=== PATIENT | female | born 1960 | race Caucasian/White ===

== ENCOUNTER 2022-04-10 18:54 | Emergency (ER) | payer OTHER ==
[~2022-04-10] VITALS: Ht 167.6 cm; Wt 48.1 kg
[2022-04-10 20:04] VITALS: BP_SYST 156
[2022-04-10] MEDS ORDERED: KETOROLAC TROMETHAMINE 30 MG VIAL IM ONE (20:15)
[2022-04-10] MEDS ORDERED: AUG875 PO (21:12)
[2022-04-10] MEDS ORDERED: IBUP-1971 PO (21:12)
[2022-04-10] MEDS ORDERED: FLUT16SP16 NS (21:12)
[2022-04-10 21:40] VITALS: BP_SYST 143
== END 2022-04-10 21:40 | disposition home or self-care (01) ==
LOC: SED 18:54
DX: J01.90 Acute sinusitis, unspecified (principal); R51.9 Headache, unspecified; R09.81 Nasal congestion; Z79.899 Other long term (current) drug therapy
CPT/HCPCS: 99283; 93005; 96372; J1885

== ENCOUNTER 2022-04-18 17:38 | Emergency (ER) | payer OTHER ==
[~2022-04-18] VITALS: Ht 167.6 cm; Wt 47.6 kg
[~2022-04-18 17:38] MED LIST: AUG875 PO; FLUT16SP16 NS; IBUP-1971 PO
[2022-04-18 17:44] VITALS: BP_SYST 136
--- NOTE | 2022-04-18 19:55 | NUR ---
ER at bedside examining patient.
[2022-04-18] MEDS ORDERED: KETOROLAC TROMETHAMINE 30 MG VIAL IM ONE (20:00)
[2022-04-18] MEDS ORDERED: LORazepam 1 MG TABLET PO ONE (20:00)
[2022-04-18] MEDS ORDERED: MAG HYDROX/AL HYDROX/SIMETH 30 ML, DICYCLOMINE HCL 20 MG, LIDOCAINE VISCOUS 2% 15ML (PO... PO ONE ×3 (20:00)
--- NOTE | 2022-04-18 20:30 | NUR ---
EKG performed at BS by RP. Physician given copy of EKG for review.
--- NOTE | 2022-04-18 21:00 | NUR ---
Patient is a 61-year-old female with history anxiety and mood disorder. Takes Prozac for 20 years. Patient states that she has been experiencing intermittent episodes of anxiety for the past 2 weeks in the setting of her parents passing away. Patient states that she felt her heart racing today which is consistent with her previous anxiety episodes. She denies associated chest pain or shortness of breath. Patient also endorses a pressure-like sensation to the top of her head. Patient states that she develops headaches every time her blood pressure is high. She denies history of migraine headaches. She denies focal weakness/numbness, slurred speech, vision changes, or other neurological deficits. Patient also asked to have some heartburn as well.
--- NOTE | 2022-04-18 21:13 | NUR ---
Patient to [facility] to [facility] for evaluation. Side rails up. Report given to DUONG Peter(TRAVELER).
[2022-04-18] MEDS ORDERED: LORA-258 PO (21:26)
--- NOTE | 2022-04-18 22:02 | NUR ---
Patient given written and verbal discharge instructions and verbalizes understanding. ER MD discussed with patient the results and treatment provided. Patient in stable condition. ID arm band removed. Rx of ativan given. Patient educated on pain management and to follow up with PMD. Opportunity for questions provided and answered. Medication side effect fact sheet provided.
[2022-04-18 22:03] VITALS: BP_SYST 136
== END 2022-04-18 22:03 | disposition home or self-care (01) ==
LOC: SED 17:38
DX: F41.9 Anxiety disorder, unspecified (principal); I10 Essential (primary) hypertension; R51.9 Headache, unspecified; Z79.899 Other long term (current) drug therapy
CPT/HCPCS: 99283; 93005; 96372; J2001; J1885

== ENCOUNTER 2022-04-26 12:52 | Emergency (ER) | payer OTHER ==
[~2022-04-26] VITALS: Ht 167.6 cm; Wt 47.6 kg
[~2022-04-26 12:52] MED LIST changes: +LORA-258 PO
[2022-04-26 12:56] VITALS: BP_SYST 138
--- NOTE | 2022-04-26 15:08 | NUR ---
DR. MILLER SEEING PATIENT IN [facility]
[2022-04-26] MEDS ORDERED: HYDR-3908 PO (15:11)
[2022-04-26] MEDS ORDERED: ONDA-8 TL (15:12)
--- NOTE | 2022-04-26 15:14 | NUR ---
Patient to [facility] Report given to SHERON RN
[2022-04-26] MEDS ORDERED: ONDANSETRON 4 MG ODT TAB PO ONE (15:15)
[2022-04-26] MEDS ORDERED: ACETAMINOPHEN 500 MG TABLET PO ONE (15:15)
[2022-04-26] MEDS ORDERED: LORazepam 1 MG TABLET PO ONE (15:15)
--- NOTE | 2022-04-26 15:15 | NUR ---
BIB SELF FROM HOME WITH C/O LIGHT-HEADEDNESS AND ANXIETY THAT STARTED THIS MORNING. HX - ANXIETY, PARANOIA PT IS AAX04, NAD, VSS, BREATHING EVEN AND UNLABORED ON RA. PT REST ON GURNEY IN HALLWAY. SAFETY PRECAUTIONS AND COMFORT MEASURES IN PLACE. PENDING MD BURKS AND ORDERS.
--- NOTE | 2022-04-26 15:16 | NUR ---
ER Dr. MOORE at bedside examining patient.
--- NOTE | 2022-04-26 15:47 | NUR ---
PT IS MEDICALLY FOR D/C. D/C INSTRUCTIONS GIVEN TO PT. PT TO FOLLOW-UP WITH PCP WITHIN 1-3 DAYS AND TO RETURN TO ED FOR WORSENING S/S. PT VERBALIZED UNDERSTANDING. PT IS AAOX4, NAD, VSS, WRISTBAND REMOVED. PT AMBULATORY WITH STEADY GAIT. PT LEFT ED WITH ALL BELONGINGS.
[2022-04-26 15:52] VITALS: BP_SYST 125
== END 2022-04-26 15:47 | disposition home or self-care (01) ==
LOC: SED 12:52
DX: F41.9 Anxiety disorder, unspecified (principal); R11.0 Nausea; R51.9 Headache, unspecified; Z79.899 Other long term (current) drug therapy
CPT/HCPCS: 99283; Q0162